=== PATIENT | female | born 1985 | race Caucasian/White ===

== ENCOUNTER 2016-11-19 21:34 | Inpatient (IN) | payer SELFPAY ==
[~2016-11-19] VITALS: Ht 157.5 cm; Wt 70.5 kg
--- NOTE | 2016-11-19 22:12 | PHYS DOC ---
Past Medical History Past Medical History: Asthma Past Surgical History: No Surgical History Alcohol Use: None Drug Use: None Adult General Chief Complaint Chief Complaint: Influenza HPI HPI Patient is a 31 year old female who presents emergency Department with a complaint of a one and a half week history of nonproductive cough, fevers, body aches, nasal congestion and slight dysuria. Patient states that she was signing [facility] last week. She states that she was prescribed an antibiotic to take. She denies having influenza test are chest x-ray didn't that time. Patient does have an established history of asthma. Patient denies any known ill contacts with similar symptoms. She denies hospitalization or foreign travel within the past 90 days. Review of Systems Review of Systems Constitutional: Denies fever or chills [] Eyes: Denies change in visual acuity, redness, or eye pain [] HENT: Denies nasal congestion or sore throat [] Respiratory: Denies cough or shortness of breath [] Cardiovascular: No additional information not addressed in HPI [] GI: Denies abdominal pain, nausea, vomiting, bloody stools or diarrhea [] : Denies dysuria or hematuria [] Musculoskeletal: Denies back pain or joint pain [] Integument: Denies rash or skin lesions [] Neurologic: Denies headache, focal weakness or sensory changes [] Endocrine: Denies polyuria or polydipsia [] Current Medications Current Medications Current Medications Medications (Trade) Dose Ordered Sig/Porfirio Start Time Stop Time Status Last Admin Dose Admin Acetaminophen (Tylenol) 500 mg 1X ONCE 11/19/16 22:30 11/19/16 22:31 DC 11/19/16 22:18 500 MG Acetaminophen/ Hydrocodone Bitart (Lortab 5/325) 1 tab 1X ONCE 11/19/16 22:30 11/19/16 22:31 DC 11/19/16 22:18 1 TAB Albuterol/ Ipratropium 3 ml 3 ml 1X ONCE 11/20/16 00:00 11/20/16 00:01 DC 11/20/16 00:02 3 ML Ciprofloxacin Lactate (Cipro 400mg Premix) 200 ml @ 200 mls/hr Q12HR 11/20/16 01:00 Piperacillin Sod/ Tazobactam Sod 3.375 gm/Sodium Chloride 50 ml @ 100 mls/hr 1X ONCE 11/20/16 00:00 11/20/16 00:29 Promethazine HCl 25 mg 25 mg 1X ONCE 11/19/16 23:15 11/19/16 23:16 DC 11/19/16 22:54 25 MG Sodium Chloride 1,000 ml @ 1,000 mls/hr Q1H 11/20/16 00:00 11/20/16 00:59 Vancomycin HCl (Vanco Per Pharmacy) 1 each PRN DAILY PRN 11/19/16 23:45 Vancomycin HCl/ Sodium Chloride (Iv Sodium Chloride 0.9% 500ml Bag) 500 ml @ 250 mls/hr 1X ONCE 11/20/16 00:30 11/20/16 02:29 Allergies Allergies Allergies Coded Allergies Type Severity Reaction Last Updated Verified No Known Drug Allergies 11/19/16 No Physical Exam Physical Exam Constitutional: Well developed, well nourished, no acute distress, non-toxic appearance. Patient is febrile. HENT: Normocephalic, atraumatic, bilateral external ears normal, oropharynx moist, no oral exudates, nose normal. There is no trismus or hot potato speech. Posterior oropharynx is moist and normal in appearance. Eyes: PERRLA, EOMI, conjunctiva normal, no discharge. [] Neck: Normal range of motion, no tenderness, supple, no stridor. There is no meningismus. There is bilateral anterior posterior cervical lymphadenopathy. Cardiovascular:Heart rate and 18 with regular rhythm, no murmur Lungs & Thorax: There is no respiratory distress respiratory fatigue. Lung sounds with rales in the LEFT lung base. Abdomen: Bowel sounds normal, soft, no tenderness, no masses, no pulsatile masses. Skin: Warm, dry, no erythema, no rash. [] Back: No tenderness, no CVA tenderness. [] Extremities: No tenderness, no cyanosis, no clubbing, ROM intact, no edema. [] Neurologic: Alert and oriented X 3, normal motor function, normal sensory function, no focal deficits noted. [] Psychologic: Affect normal, judgement normal, mood normal. [] Current Patient Data Vital Signs Vital Signs Date Time Temp Pulse Resp B/P Pulse Ox O2 Delivery O2 Flow Rate FiO2 11/20/16 00:03 95 Room Air 11/19/16 23:34 102.4 102.4 11/19/16 21:57 79 18 Lab Values Laboratory Tests Test 11/19/16 22:10 Urine Collection Type Unknown Urine Color Eve Urine Clarity Cloudy Urine pH 5.5 Urine Specific [place] 1.025 Urine Protein 100mg/dL (NEG-TRACE) Urine Glucose (UA) Negativemg/dL (NEG) Urine Ketones (Stick) 15mg/dL (NEG) Urine Blood Negative (NEG) Urine Nitrite Positive (NEG) Urine Bilirubin Moderate (NEG) Urine Urobilinogen Dipstick 4.0mg/dL (0.2 mg/dL) Urine Leukocyte Esterase Small (NEG) Urine RBC 0/HPF (0-2) Urine WBC 1-4/HPF (0-4) Urine Squamous Epithelial Cells Mod/LPF Urine Bacteria Many/HPF (0-FEW) Urine Mucus Mod/LPF Influenza Type A Antigen Negative (NEGATIVE) Influenza Type B Antigen Negative (NEGATIVE) EKG EKG [] Radiology/Procedures Radiology/Procedures PA and lateral chest x-ray was performed with adequate technique. Patient has 2 areas of infiltrate in her left lower lobe. Course & Med Decision Making Course & Med Decision Making Patient is sick, but not unstable. She is an otherwise healthy 31-year-old female that presents with persistent fever and cough after taking a 5 day course of an antibiotic that is assumed to be azithromycin. After reviewing patient's chest x-ray which indicates a left lower lobe pneumonia, I spoke with Dr. Gutierrez, hospitalist will accept the patient on her service for healthcare associated pneumonia. Patient was moved to the acute area of the emergency department for lab draw and IV fluids. I discussed this case with Dr. Marrero, emergency medicine physician who agrees with this plan. Dragon Disclaimer Dragon Disclaimer This electronic medical record was generated, in whole or in part, using a voice recognition dictation system. Departure Departure Impression: Primary Impression: Healthcare-associated pneumonia Disposition: ADMITTED INPATIENT Admitting Physician: Leopoldo Gutierrez Condition: STABLE SENAIT HERNANDEZ Nov 19, 2016 22:12
[2016-11-19 22:20] LABS: BILIRUBIN,URINE MODERATE (NEG); GLUCOSE,URINE NEGATIVE (NEG); NITRITE,URINE POSITIVE (NEG); PH,URINE 5.5; PROTEIN,URINE 100 mg/dL (NEG-TRACE)
[2016-11-19 22:25] LABS: BACTERIA,URINE MANY /HPF (0-FEW); RBC,URINE 0 /HPF (0-2); SQUAMOUS EPITHELIAL CELL,UR MOD /LPF
[2016-11-19] MEDS ORDERED: HYDROCODONE/APAP 5/325MG TABLET. PO ONE (22:30)
[2016-11-19] MEDS ORDERED: ACETAMINOPHEN 500 MG TABLET PO ONE (22:30)
[2016-11-19 22:44] LABS: OBC FLU VALID
[2016-11-19] MEDS ORDERED: PROMETHAZINE IM 25 MG/ML VIAL IM ONE (23:15)
[2016-11-20] VITALS (7 sets, daily range): BP systolic 93–105; BP diastolic 53–77
[2016-11-20] MEDS ORDERED: IPRATRPIUM/ALBUTEROL 0.5/2.5MG 3 ML NEBU. NEB ONE
[2016-11-20] MEDS ORDERED: IV NORMAL SALINE 1000ML BAG 1,000 ML IV SCH
[2016-11-20] MEDS ORDERED: PIPERACILLIN/TAZOBACTAM 3.375 GM in IV NORMAL SALINE 50ML 50 ML IV ONE ×2
[2016-11-20] MEDS: IV NORMAL SALINE 1000ML BAG 1,000 ML IV SCH ×3 (00:08→13:04)
[2016-11-20] MEDS ORDERED: ACETAMINOPHEN 325 MG TABLET. PO PRN ×2 (00:15→08:30)
[2016-11-20] MEDS ORDERED: VANCOMYCIN PER PHARMACY MC PRN ×2 (00:15→08:45)
[2016-11-20] MEDS ORDERED: ONDANSETRON PF 4 MG/2 ML VIAL. IV PRN ×2 (00:15→08:30)
[2016-11-20] MEDS ORDERED: PIP/TAZO PER PHARMACY MC PRN (00:15)
[2016-11-20 00:28] LABS: BASO % 0 % (0-3); EOS % 0 % (0-3); HEMOGLOBIN 12.8 g/dL (12.0-15.5); LYMPH # 0.9 x10^3/uL (1.0-4.8); LYMPH % 5 % (24-48); MEAN CORPUSCULAR HEMOGLOBIN 29 pg (25-35); MEAN CORPUSCULAR HGB CONC 34 g/dL (31-37); MEAN CORPUSCULAR VOLUME 86 fL (79-100); MONO % 5 % (0-9); NEUT % 89 % (31-73); PLATELET COUNT 240 x10^3/uL (140-400); RED BLOOD COUNT 4.43 x10^6/uL (3.50-5.40); RED CELL DISTRIBUTION WIDTH 13.2 % (11.5-14.5); WHITE BLOOD COUNT 18.5 x10^3/uL (4.0-11.0)
[2016-11-20] MEDS ORDERED: VANCOMYCIN 1.75 GM in IV NORMAL SALINE 500ML BAG 500 ML IV ONE ×2 (00:30→09:00)
[2016-11-20 00:37] LABS: CALCIUM 9.3 mg/dL (8.5-10.1); CREATININE 0.8 mg/dL (0.6-1.0); GFR 83.1; POTASSIUM 3.3 mmol/L (3.5-5.1)
[2016-11-20 00:42] LABS: ALBUMIN 3.6 g/dL (3.4-5.0); TOTAL BILIRUBIN 2.3 mg/dL (0.2-1.0); TOTAL PROTEIN 7.1 g/dL (6.4-8.2)
[2016-11-20] MEDS: CIPROFLOXACIN 400MG PREMIX 200 ML IV SCH ×2 (00:57→08:58)
[2016-11-20 01:24] LABS: PLT ESTIMATE ADEQUATE (ADEQUATE); TOXIC GRANULATION SLIGHT; TOXIC VACUOLATION SLIGHT
[2016-11-20] MEDS ORDERED: INFLUENZA VAX SCREEN BY RX. MC ONE (01:30)
[2016-11-20] MEDS ORDERED: PNEUMOCOCCAL VAX SCREEN BY RX. MC ONE (01:30)
[2016-11-20] MEDS: VANCOMYCIN PER PHARMACY MC PRN (01:57)
[2016-11-20] MEDS ORDERED: PIPERACILLIN/TAZOBACTAM 3.375 GM in IV NORMAL SALINE 50ML 50 ML IV SCH (06:00)
--- NOTE | 2016-11-20 07:14 | RAD ---
Chest, 2 views, 11/19/2016: History: Fever and cough The heart size and pulmonary vascularity are normal. There are moderate patchy infiltrates in the left lung base involving the left lower lobe and lingula. There is a lesser degree of infiltrate in the right base medially. The findings suggest pneumonia. There is no evidence of pleural fluid. IMPRESSION: Moderate basilar infiltrates, predominantly on the left, compatible with pneumonia.
[2016-11-20] MEDS: IPRATRPIUM/ALBUTEROL 0.5/2.5MG 3 ML NEBU. NEB SCH ×4 (07:28→18:13)
[2016-11-20] MEDS ORDERED: HYDROCODONE/APAP 5/325MG TABLET. PO PRN (08:30)
[2016-11-20] MEDS ORDERED: hydrALAZINE 20 MG/ML VIAL. IVP PRN (08:30)
[2016-11-20] MEDS ORDERED: ALBUTEROL SULFATE 2.5 MG/3 ML NEBU. NEB PRN (08:30)
[2016-11-20] MEDS ORDERED: FLU VACC QUAD 2016-17 (36MOS+)/PF 0.5 ML SYRINGE. VAX IM ONE (09:00)
[2016-11-20] MEDS ORDERED: CIPROFLOXACIN 400MG PREMIX 200 ML IV SCH (09:00)
[2016-11-20] MEDS ORDERED: PNEUMOC CONJ VACC 23-VALENT 0.5 ML VIAL. VAX IM ONE (09:00)
--- NOTE | 2016-11-20 09:55 | HP ---
ADMIT DATE: 11/20/2016 CHIEF COMPLAINT: Cough and pneumonia. HISTORY OF PRESENT ILLNESS: A 31-year-old female patient with no significant medical problems, presented to the ER with complaints of nearly 1 week of nonproductive cough and fever and body aches. She was seen by physicians at [facility] last week and she was treated with oral antibiotic, Zithromax. The patient completed antibiotic for one week; however, her symptoms did not improve, which made her to come to the ER. She was complaining of some nausea, headache, fever and weakness; however, her influenza rapid test is negative on arrival. The patient was admitted to the hospital for failed outpatient antibiotics and treatment of pneumonia. She denies any sick contacts, travel history. She was a smoker. She is not a smoker at this time. PAST MEDICAL HISTORY: None. FAMILY HISTORY: Mother has asthma. PERSONAL HISTORY: Former smoker, quit smoking in August, no alcohol, no drug abuse. ALLERGIES: NKDA. REVIEW OF SYSTEMS: CONSTITUTIONAL: No fever or chills. EYES: No recent vision changes. SKIN: No rash or itching. CARDIOVASCULAR: No chest pain, syncope, palpitations or edema. RESPIRATORY: Cough and mild short of breath. GASTROINTESTINAL: No nausea, vomiting, diarrhea or abdominal pain. NEUROLOGICAL: No headache, paralysis. ENDOCRINOLOGIC: No cold or heat intolerance. GENITOURINARY: No burning with urination, no urgency. MUSCULOSKELETAL: No back pain or joint pain. LYMPHATICS: No enlarged nodes. PSYCHIATRIC: No anxiety or depression. CURRENT MEDICATIONS: Reviewed and reconciled. Please see MRAD. PHYSICAL EXAM: GENERAL: No apparent distress. HEENT: Head normocephalic, atraumatic. NECK: Supple. LUNGS: Mild respiratory distress with rales present bilaterally. HEART: Regular rate and rhythm; S1, S2 present; pulses intact. ABDOMEN: Soft and positive bowel sounds. EXTREMITIES: No cyanosis or edema. NEUROLOGIC: Normal speech and normal tone; alert and oriented. PSYCHIATRIC: Normal affect, normal mood. SKIN: No ulceration. VITAL SIGNS: At the time of arrival, temperature ____, pulse 79, respirations 18, pulse ox 95% on room air. LABORATORY DATA: Sodium 138, potassium 3.3, chloride is 97, carbon dioxide 27, anion gap 14, BUN is 12, creatinine 0.8. Total bilirubin 2.3. AST 63 and ALT 64, alkaline phosphatase 197. Hematology: WBC 18.5, hemoglobin is 12.8, MCV is 86 and platelets 240. Segmented neutrophil 83% with toxic granulation present. Urine, nitrites positive and leukocyte esterase is small. Serology, influenza A and B negative. IMAGING STUDIES: Chest x-ray showed moderate basilar infiltrates predominantly on the left compatible with pneumonia. ASSESSMENT: 1. Community-acquired pneumonia, failed outpatient antibiotics. 2. Elevated bilirubin with mild AST and ALT. 3. Generalized weakness. 4. Leukocytosis due to pneumonia. PLAN: 1. Due to her failed antibiotics, I will start her on Zosyn and vancomycin for now and de-escalate antibiotics as needed. 2. Tylenol for fever. 3. Monitor her CBC and CMP in a.m. 4. Consult Pulmonology for further recommendations. 5. P.r.n. bronchodilators. 6. I will order blood cultures if any temperature spikes more than 100. 7. Currently, the patient is on room air and will continue mild IV hydration. 8. Supportive care. 9. Overall prognosis guarded. SHAWN GODFREY MD DR: ELYSSA/rosa JOB#: [id number] / [id number]
[2016-11-20] MEDS: PIPERACILLIN/TAZOBACTAM 3.375 GM in IV NORMAL SALINE 50ML 50 ML IV SCH ×4 (10:45→23:41)
[2016-11-20] MEDS: VANCOMYCIN 1 GM in IV NORMAL SALINE 250ML 250 ML IV SCH (12:28)
[2016-11-20] MEDS ORDERED: POTASSIUM CHLORIDE 20 MEQ TABLET.ER. PO ONE (12:45)
[2016-11-21] VITALS (7 sets, daily range): BP systolic 93–198; BP diastolic 54–92
[2016-11-21] MEDS: VANCOMYCIN 1 GM in IV NORMAL SALINE 250ML 250 ML IV SCH ×2 (00:25→12:00)
[2016-11-21] MEDS: IV NORMAL SALINE 1000ML BAG 1,000 ML IV SCH ×2 (04:16→09:10)
[2016-11-21 05:10] LABS: BASO % 1 % (0-3); EOS % 2 % (0-3); HEMATOCRIT 29.8 % (36.0-47.0); HEMOGLOBIN 10.2 g/dL (12.0-15.5); LYMPH # 0.9 x10^3/uL (1.0-4.8); LYMPH % 18 % (24-48); MEAN CORPUSCULAR HEMOGLOBIN 30 pg (25-35); MEAN CORPUSCULAR HGB CONC 34 g/dL (31-37); MEAN CORPUSCULAR VOLUME 86 fL (79-100); MONO % 6 % (0-9); NEUT % 74 % (31-73); PLATELET COUNT 221 x10^3/uL (140-400); RED BLOOD COUNT 3.45 x10^6/uL (3.50-5.40); RED CELL DISTRIBUTION WIDTH 13.7 % (11.5-14.5)
[2016-11-21] MEDS: PIPERACILLIN/TAZOBACTAM 3.375 GM in IV NORMAL SALINE 50ML 50 ML IV SCH (05:53)
[2016-11-21 06:06] LABS: CALCIUM 8.5 mg/dL (8.5-10.1); CREATININE 0.5 mg/dL (0.6-1.0); POTASSIUM 3.4 mmol/L (3.5-5.1)
[2016-11-21] MEDS: IPRATRPIUM/ALBUTEROL 0.5/2.5MG 3 ML NEBU. NEB SCH (07:30)
--- NOTE | 2016-11-21 08:49 | PDOC ---
PROGRESS NOTES Chief Complaint Chief Complaint cc: sob A/P 1. Community-acquired pneumonia, failed outpatient antibiotics. 2. Elevated bilirubin with mild AST and ALT. 3. GPC bacteremia Plan continue current abx, Zosyn and vancomycin follow blood cx monitor bilirubin clinically improving ID consult supportive care. 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 Vitals Vitals Vital Signs Date Time Temp Pulse Resp B/P Pulse Ox O2 Delivery O2 Flow Rate FiO2 11/21/16 06:42 98.5 88 16 102/58 97 Room Air 98.5 11/20/16 23:36 97.0 Physical Exam General: Alert, Oriented X3 Heart: Normal S1, Normal S2 Lungs: Clear Abdomen: Normal bowel sounds Extremities: No clubbing Labs LABS Laboratory Tests Test 11/21/16 03:32 White Blood Count 5.0x10^3/uL (4.0-11.0) Red Blood Count 3.45x10^6/uL (3.50-5.40) Hemoglobin 10.2g/dL (12.0-15.5) Hematocrit 29.8% (36.0-47.0) Mean Corpuscular Volume 86fL (79-100) Mean Corpuscular Hemoglobin 30pg (25-35) Mean Corpuscular Hemoglobin Concent 34g/dL (31-37) Red Cell Distribution Width 13.7% (11.5-14.5) Platelet Count 221x10^3/uL (140-400) Neutrophils (%) (Auto) 74% (31-73) Lymphocytes (%) (Auto) 18% (24-48) Monocytes (%) (Auto) 6% (0-9) Eosinophils (%) (Auto) 2% (0-3) Basophils (%) (Auto) 1% (0-3) Neutrophils # (Auto) 3.7x10^3uL (1.8-7.7) Lymphocytes # (Auto) 0.9x10^3/uL (1.0-4.8) Monocytes # (Auto) 0.3x10^3/uL (0.0-1.1) Eosinophils # (Auto) 0.1x10^3/uL (0.0-0.7) Basophils # (Auto) 0.0x10^3/uL (0.0-0.2) Sodium Level 144mmol/L (136-145) Potassium Level 3.4mmol/L (3.5-5.1) Chloride Level 107mmol/L (98-107) Carbon Dioxide Level 24mmol/L (21-32) Anion Gap 13 (6-14) Blood Urea Nitrogen 8mg/dL (7-20) Creatinine 0.5mg/dL (0.6-1.0) Estimated GFR (Cockcroft-Gault) 143.0 Glucose Level 101mg/dL (70-99) Calcium Level 8.5mg/dL (8.5-10.1) Assessment and Plan Assessmemt and Plan Problems Medical Problems: (1) Healthcare-associated pneumonia Status: Acute Problems: Comment Review of Relevant I have reviewed the following items [place]in (where applicable) has been applied. Labs Laboratory Tests Test 11/19/16 22:10 11/19/16 22:16 11/20/16 00:15 11/21/16 03:32 Urine Collection Type Unknown Urine Color Eve Urine Clarity Cloudy Urine pH 5.5 Urine Specific [place] 1.025 Urine Protein 100mg/dL (NEG-TRACE) Urine Glucose (UA) Negativemg/dL (NEG) Urine Ketones (Stick) 15mg/dL (NEG) Urine Blood Negative (NEG) Urine Nitrite Positive (NEG) Urine Bilirubin Moderate (NEG) Urine Urobilinogen Dipstick 4.0mg/dL (0.2 mg/dL) Urine Leukocyte Esterase Small (NEG) Urine RBC 0/HPF (0-2) Urine WBC 1-4/HPF (0-4) Urine Squamous Epithelial Cells Mod/LPF Urine Bacteria Many/HPF (0-FEW) Urine Mucus Mod/LPF Influenza Type A Antigen Negative (NEGATIVE) Influenza Type B Antigen Negative (NEGATIVE) Bedside Urine HCG, Qualitative Hcg negative (Negative) White Blood Count 18.5x10^3/uL (4.0-11.0) 5.0x10^3/uL (4.0-11.0) Red Blood Count 4.43x10^6/uL (3.50-5.40) 3.45x10^6/uL (3.50-5.40) Hemoglobin 12.8g/dL (12.0-15.5) 10.2g/dL (12.0-15.5) Hematocrit 38.0% (36.0-47.0) 29.8% (36.0-47.0) Mean Corpuscular Volume 86fL (79-100) 86fL (79-100) Mean Corpuscular Hemoglobin 29pg (25-35) 30pg (25-35) Mean Corpuscular Hemoglobin Concent 34g/dL (31-37) 34g/dL (31-37) Red Cell Distribution Width 13.2% (11.5-14.5) 13.7% (11.5-14.5) Platelet Count 240x10^3/uL (140-400) 221x10^3/uL (140-400) Neutrophils (%) (Auto) 89% (31-73) 74% (31-73) Lymphocytes (%) (Auto) 5% (24-48) 18% (24-48) Monocytes (%) (Auto) 5% (0-9) 6% (0-9) Eosinophils (%) (Auto) 0% (0-3) 2% (0-3) Basophils (%) (Auto) 0% (0-3) 1% (0-3) Neutrophils # (Auto) 16.5x10^3uL (1.8-7.7) 3.7x10^3uL (1.8-7.7) Lymphocytes # (Auto) 0.9x10^3/uL (1.0-4.8) 0.9x10^3/uL (1.0-4.8) Monocytes # (Auto) 1.0x10^3/uL (0.0-1.1) 0.3x10^3/uL (0.0-1.1) Eosinophils # (Auto) 0.0x10^3/uL (0.0-0.7) 0.1x10^3/uL (0.0-0.7) Basophils # (Auto) 0.0x10^3/uL (0.0-0.2) 0.0x10^3/uL (0.0-0.2) Segmented Neutrophils % 83% (35-66) Band Neutrophils % 7% (0-9) Lymphocytes % 4% (24-48) Monocytes % 6% (0-10) Toxic Granulation Slight Toxic Vacuolation Slight Platelet Estimate Adequate (ADEQUATE) Sodium Level 138mmol/L (136-145) 144mmol/L (136-145) Potassium Level 3.3mmol/L (3.5-5.1) 3.4mmol/L (3.5-5.1) Chloride Level 97mmol/L (98-107) 107mmol/L (98-107) Carbon Dioxide Level 27mmol/L (21-32) 24mmol/L (21-32) Anion Gap 14 (6-14) 13 (6-14) Blood Urea Nitrogen 12mg/dL (7-20) 8mg/dL (7-20) Creatinine 0.8mg/dL (0.6-1.0) 0.5mg/dL (0.6-1.0) Estimated GFR (Cockcroft-Gault) 83.1 143.0 BUN/Creatinine Ratio 15 (6-20) Glucose Level 140mg/dL (70-99) 101mg/dL (70-99) Lactic Acid Level 1.5mmol/L (0.4-2.0) Calcium Level 9.3mg/dL (8.5-10.1) 8.5mg/dL (8.5-10.1) Total Bilirubin 2.3mg/dL (0.2-1.0) Aspartate Amino Transf (AST/SGOT) 63U/L (15-37) Alanine Aminotransferase (ALT/SGPT) 64U/L (14-59) Alkaline Phosphatase 197U/L (46-116) Total Protein 7.1g/dL (6.4-8.2) Albumin 3.6g/dL (3.4-5.0) Albumin/Globulin Ratio 1.0 (1.0-1.7) Laboratory Tests Test 11/21/16 03:32 White Blood Count 5.0x10^3/uL (4.0-11.0) Red Blood Count 3.45x10^6/uL (3.50-5.40) Hemoglobin 10.2g/dL (12.0-15.5) Hematocrit 29.8% (36.0-47.0) Mean Corpuscular Volume 86fL (79-100) Mean Corpuscular Hemoglobin 30pg (25-35) Mean Corpuscular Hemoglobin Concent 34g/dL (31-37) Red Cell Distribution Width 13.7% (11.5-14.5) Platelet Count 221x10^3/uL (140-400) Neutrophils (%) (Auto) 74% (31-73) Lymphocytes (%) (Auto) 18% (24-48) Monocytes (%) (Auto) 6% (0-9) Eosinophils (%) (Auto) 2% (0-3) Basophils (%) (Auto) 1% (0-3) Neutrophils # (Auto) 3.7x10^3uL (1.8-7.7) Lymphocytes # (Auto) 0.9x10^3/uL (1.0-4.8) Monocytes # (Auto) 0.3x10^3/uL (0.0-1.1) Eosinophils # (Auto) 0.1x10^3/uL (0.0-0.7) Basophils # (Auto) 0.0x10^3/uL (0.0-0.2) Sodium Level 144mmol/L (136-145) Potassium Level 3.4mmol/L (3.5-5.1) Chloride Level 107mmol/L (98-107) Carbon Dioxide Level 24mmol/L (21-32) Anion Gap 13 (6-14) Blood Urea Nitrogen 8mg/dL (7-20) Creatinine 0.5mg/dL (0.6-1.0) Estimated GFR (Cockcroft-Gault) 143.0 Glucose Level 101mg/dL (70-99) Calcium Level 8.5mg/dL (8.5-10.1) Microbiology 11/20/16 Blood Culture - Final, Complete Medications Current Medications Acetaminophen (Tylenol) 500 mg 1X ONCE PO Last administered on 11/19/16 22:18 ; Start 11/19/16 at 22:30; Stop 11/19/16 at 22:31; Status DC Acetaminophen/ Hydrocodone Bitart (Lortab 5/325) 1 tab 1X ONCE PO Last administered on 11/19/16 22:18; Start 11/19/16 at 22:30; Stop 11/19/16 at 22:31 ; Status DC Promethazine HCl 25 mg 25 mg 1X ONCE IM Last administered on 11/19/16 22:54; Start 11/19/16 at 23:15; Stop 11/19/16 at 23:16; Status DC Sodium Chloride 1,000 ml @ 1,000 mls/hr Q1H IV Last administered on 11/20/16 00:07; Start 11/20/16 at 00:00; Stop 11/20/16 at 00:59; Status DC Piperacillin Sod/ Tazobactam Sod 3.375 gm/Sodium Chloride 50 ml @ 100 mls/hr 1X ONCE IV Last administered on 11/20/16 00:07; Start 11/20/16 at 00:00; Stop 11/20/16 at 00:29; Status DC Ciprofloxacin Lactate (Cipro 400mg Premix) 200 ml @ 200 mls/hr Q12HR IV Last administered on 11/20/16 08:58; Start 11/20/16 at 01:00; Stop 11/20/16 at 16:03 ; Status DC Vancomycin HCl (Vanco Per Pharmacy) 1 each PRN DAILY PRN MC SEE COMMENTS Last administered on 11/20/16 01:57; Start 11/19/16 at 23:45 Albuterol/ Ipratropium 3 ml 3 ml 1X ONCE NEB Last administered on 11/20/16 00 :02; Start 11/20/16 at 00:00; Stop 11/20/16 at 00:01; Status DC Vancomycin HCl/ Sodium Chloride (Iv Sodium Chloride 0.9% 500ml Bag) 500 ml @ 250 mls/hr 1X ONCE IV Last administered on 11/20/16 00:58; Start 11/20/16 at 00:30; Stop 11/20/16 at 02:29; Status DC Ondansetron HCl 4 mg 4 mg PRN Q8HRS PRN IV NAUSEA/VOMITING; Start 11/20/16 at 00:15; Stop 11/20/16 at 08:20; Status DC Sodium Chloride (Iv Sodium Chloride 0.9% 1000ml Bag) 1,000 ml @ 150 mls/hr Q6H40M IV ; Start 11/20/16 at 00:08; Stop 11/20/16 at 12:44; Status DC Acetaminophen (Tylenol) 650 mg PRN Q4HRS PRN PO FEVER; Start 11/20/16 at 00:15 ; Stop 11/20/16 at 08:20; Status DC Albuterol/ Ipratropium (Duoneb) 3 ml RTQID NEB Last administered on 11/21/16 07:30; Start 11/20/16 at 08:00; Stop 11/21/16 at 07:59; Status DC Piperacillin Sod/ Tazobactam Sod (Zosyn Per Pharmacy) 1 each PRN DAILY PRN MC SEE COMMENTS; Start 11/20/16 at 00:15 Vancomycin HCl 1 each 1 each PRN DAILY PRN MC SEE COMMENTS; Start 11/20/16 at 00:15; Status UNV Ciprofloxacin Lactate (Cipro 400mg Premix) 200 ml @ 200 mls/hr Q12HR IV ; Start 11/20/16 at 09:00; Status UNV Info (Do NOT chart on this placeholder) 1 each ONCE ONCE MC ; Start 11/20/16 at 01:30; Stop 11/20/16 at 01:31; Status UNV Pneumococcal Polyvalent Vaccine (Do NOT chart on this placeholder) 1 each ONCE ONCE MC ; Start 11/20/16 at 01:30; Stop 11/20/16 at 01:31; Status UNV Influenza Virus Vaccine Quadrival (Fluarix Quad 0638-1026 Syringe) 0.5 ml ONCE ONCE VAX IM ; Start 11/20/16 at 09:00; Stop 11/20/16 at 09:01; Status DC Pneumococcal Polyvalent Vaccine 0.5 ml 0.5 ml ONCE ONCE VAX IM ; Start 11/20/16 at 09:00; Stop 11/20/16 at 09:01; Status DC Piperacillin Sod/ Tazobactam Sod 3.375 gm/Sodium Chloride 50 ml @ 100 mls/hr Q6HRS IV Last administered on 11/20/16 05:39; Start 11/20/16 at 06:00; Stop at 09:17; Status DC Vancomycin HCl/ Sodium Chloride (Iv Sodium Chloride 0.9% 250ml) 250 ml @ 250 mls/hr Q12H IV Last administered on 11/21/16 00:25; Start 11/20/16 at 12:00 Vancomycin HCl 1 each 1X ONCE MC ; Start 11/21/16 at 11:30; Stop 11/21/16 at 11 :31 Acetaminophen (Tylenol) 325 mg PRN Q6HRS PRN PO MILD PAIN / TEMP; Start at 08:30 Acetaminophen/ Hydrocodone Bitart (Lortab 5/325) 1 tab PRN Q6HRS PRN PO MODERATE TO SEVERE PAIN; Start 11/20/16 at 08:30 Hydralazine HCl (Apresoline) 10 mg PRN Q4HRS PRN IVP ELEVATED BP, SEE COMMENTS ; Start 11/20/16 at 08:30 Ondansetron HCl (Zofran) 4 mg PRN Q8HRS PRN IV NAUSEA/VOMITING Last administered on 11/21/16 01:46; Start 11/20/16 at 08:30 Albuterol Sulfate 2.5 mg 2.5 mg PRN Q4HRS PRN NEB SHORTNESS OF BREATH; Start at 08:30 Piperacillin Sod/ Tazobactam Sod/ Sodium Chloride (Zosyn/Iv Sodium Chloride 0.9 % 50ml) 50 ml @ 100 mls/hr Q6HRS IV Last administered on 11/21/16 05:53; Start 11/20/16 at 09:00 Vancomycin HCl 1 each 1 each PRN DAILY PRN MC SEE COMMENTS; Start 11/20/16 at 08:45; Status UNV Sodium Chloride 1,000 ml @ 75 mls/hr [id number] IV Last administered on 04:16; Start 11/20/16 at 09:00 Vancomycin HCl/ Sodium Chloride (Iv Sodium Chloride 0.9% 500ml Bag) 500 ml @ 250 mls/hr 1X ONCE IV ; Start 11/20/16 at 09:00; Stop 11/20/16 at 10:59; Status Cancel Potassium Chloride (Klor-Con) 20 meq 1X ONCE PO Last administered on 13:02; Start 11/20/16 at 12:45; Stop 11/20/16 at 12:46; Status DC Vitals/I & O Vital Sign - Last 24 Hours 11/20/16 11/20/16 11/20/16 11/20/16 10:42 11:58 14:39 15:12 Temp 98.0 98.3 98.0 98.3 Pulse 71 98 Resp 18 18 B/P 102/59 98/55 Pulse Ox 97 97 97 O2 Delivery Room Air Room Air Room Air Room Air 2/2011/20/16 11/20/16 11/20/16 18:13 19:10 19:10 23:36 Temp 98.0 98.5 98.0 98.5 Pulse 109 103 Resp 18 18 B/P 105/63 97/64 Pulse Ox 97 O2 Delivery Room Air Room Air Room Air Room Air O2 Flow Rate 97.0 11/21/16 11/21/16 03:00 06:42 Temp 99.0 98.5 99.0 98.5 Pulse 102 88 Resp 16 16 B/P 99/62 102/58 Pulse Ox 92 97 O2 Delivery Room Air Room Air Intake and Output 11/20/16 11/20/16 11/21/16 15:00 23:00 07:00 Intake Total 210 ml 1480 ml 880 ml Balance 210 ml 1480 ml 880 ml SHAWN GODFREY MD Nov 21, 2016 08:49
--- NOTE | 2016-11-21 10:54 | PDOC ---
Infectious Disease Note ROS ROS GEN: Denies fevers, chills, sweats HEENT: Denies blurred vision, sore throat CV: Denies chest pain RESP: Denies shortness of air, cough GI: Denies n/v/d NEURO: Denies confusion, dizziness MSK: Denies weakness, joint pain/swelling Vital Sign Vital Signs Vital Signs Date Time Temp Pulse Resp B/P Pulse Ox O2 Delivery O2 Flow Rate FiO2 11/21/16 07:35 92 Room Air 11/21/16 06:42 98.5 88 16 102/58 98.5 11/20/16 23:36 97.0 Physical Exam PHYSICAL EXAM GENERAL: NAD, Alert HEENT: PERRL, OC/OP NECK: Supple, no JVD, no LN LUNGS: Clear HEART: S1S2, no gallop, no murmur ABD: Soft, NT, no organomegaly, no rebound EXT: No edema, no cyanosis [employer]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, 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, no focal neurologic deficit SKIN: No rash IV: ok Labs Lab Laboratory Tests Test 11/21/16 03:32 White Blood Count 5.0x10^3/uL (4.0-11.0) Red Blood Count 3.45x10^6/uL (3.50-5.40) Hemoglobin 10.2g/dL (12.0-15.5) Hematocrit 29.8% (36.0-47.0) Mean Corpuscular Volume 86fL (79-100) Mean Corpuscular Hemoglobin 30pg (25-35) Mean Corpuscular Hemoglobin Concent 34g/dL (31-37) Red Cell Distribution Width 13.7% (11.5-14.5) Platelet Count 221x10^3/uL (140-400) Neutrophils (%) (Auto) 74% (31-73) Lymphocytes (%) (Auto) 18% (24-48) Monocytes (%) (Auto) 6% (0-9) Eosinophils (%) (Auto) 2% (0-3) Basophils (%) (Auto) 1% (0-3) Neutrophils # (Auto) 3.7x10^3uL (1.8-7.7) Lymphocytes # (Auto) 0.9x10^3/uL (1.0-4.8) Monocytes # (Auto) 0.3x10^3/uL (0.0-1.1) Eosinophils # (Auto) 0.1x10^3/uL (0.0-0.7) Basophils # (Auto) 0.0x10^3/uL (0.0-0.2) Sodium Level 144mmol/L (136-145) Potassium Level 3.4mmol/L (3.5-5.1) Chloride Level 107mmol/L (98-107) Carbon Dioxide Level 24mmol/L (21-32) Anion Gap 13 (6-14) Blood Urea Nitrogen 8mg/dL (7-20) Creatinine 0.5mg/dL (0.6-1.0) Estimated GFR (Cockcroft-Gault) 143.0 Glucose Level 101mg/dL (70-99) Calcium Level 8.5mg/dL (8.5-10.1) Objective Assessment strep sepsis but Enterococcus also possible 11/20 UTI Fever Leukocytosis ? psorasis Plan Plan of Care Cont Vanc Change to [place] F/u cults and labs D/w [facility] micro - no labs on 11/14 # [id number] YECENIA CORNEJO MD Nov 21, 2016 10:54
[2016-11-21] MEDS: CEFTRIAXONE SODIUM 2 GM in IV NORMAL SALINE 100ML 100 ML IV SCH (12:39)
[2016-11-21] MEDS: VANCOMYCIN PER PHARMACY MC PRN (13:15)
[2016-11-21] MEDS: VANCOMYCIN 1.25 GM in IV NORMAL SALINE 250ML 250 ML IV SCH (14:11)
[2016-11-22] MEDS: IV NORMAL SALINE 1000ML BAG 1,000 ML IV SCH (01:46)
[2016-11-22] MEDS: VANCOMYCIN 1.25 GM in IV NORMAL SALINE 250ML 250 ML IV SCH ×2 (01:46→09:39)
[2016-11-22] MEDS: GUAIFENESIN 200 MG/10 ML LIQUID. PO PRN (02:41)
[2016-11-22 03:00] VITALS: BP 102/65
[2016-11-22 07:00] VITALS: BP 107/72
[2016-11-22 07:15] LABS: BASO % 1 % (0-3); EOS % 2 % (0-3); HEMATOCRIT 31.2 % (36.0-47.0); HEMOGLOBIN 10.3 g/dL (12.0-15.5); LYMPH # 0.8 x10^3/uL (1.0-4.8); LYMPH % 20 % (24-48); MEAN CORPUSCULAR HEMOGLOBIN 29 pg (25-35); MEAN CORPUSCULAR HGB CONC 33 g/dL (31-37); MEAN CORPUSCULAR VOLUME 87 fL (79-100); MONO % 6 % (0-9); NEUT % 71 % (31-73); PLATELET COUNT 228 x10^3/uL (140-400); RED BLOOD COUNT 3.57 x10^6/uL (3.50-5.40); RED CELL DISTRIBUTION WIDTH 13.4 % (11.5-14.5)
[2016-11-22 07:46] LABS: ALBUMIN 2.9 g/dL (3.4-5.0); ALBUMIN/GLOBULIN RATIO 1.3 (1.0-1.7); CALCIUM 8.8 mg/dL (8.5-10.1); CREATININE 0.5 mg/dL (0.6-1.0); TOTAL BILIRUBIN 0.5 mg/dL (0.2-1.0); TOTAL PROTEIN 5.2 g/dL (6.4-8.2)
[2016-11-22] MEDS: CEFTRIAXONE SODIUM 2 GM in IV NORMAL SALINE 100ML 100 ML IV SCH (10:57)
[2016-11-22 11:38] VITALS: BP 107/71
--- NOTE | 2016-11-22 11:49 | PDOC ---
Infectious Disease Note Subjective Subjective Better. no dysuria Occ cough but only at night ROS ROS GEN: Denies fevers, chills, sweats HEENT: Denies blurred vision, sore throat CV: Denies chest pain RESP: Denies shortness of air, cough GI: Denies n/v/d NEURO: Denies confusion, dizziness MSK: Denies weakness, joint pain/swelling Vital Sign Vital Signs Vital Signs Date Time Temp Pulse Resp B/P Pulse Ox O2 Delivery O2 Flow Rate FiO2 11/22/16 11:38 97.5 73 16 107/71 94 Room Air 97.5 11/21/16 17:42 3.0 Physical Exam PHYSICAL EXAM GENERAL: NAD, Alert HEENT: PERRL, OC/OP -clear NECK: Supple, no JVD, no LN LUNGS: Clear HEART: S1S2, no gallop, no murmur ABD: Soft, NT, no organomegaly, no rebound EXT: No edema, no cyanosis 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, 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, no focal neurologic deficit SKIN: No rash IV: ok Labs Lab Laboratory Tests Test 11/22/16 06:50 White Blood Count 4.0x10^3/uL (4.0-11.0) Red Blood Count 3.57x10^6/uL (3.50-5.40) Hemoglobin 10.3g/dL (12.0-15.5) Hematocrit 31.2% (36.0-47.0) Mean Corpuscular Volume 87fL (79-100) Mean Corpuscular Hemoglobin 29pg (25-35) Mean Corpuscular Hemoglobin Concent 33g/dL (31-37) Red Cell Distribution Width 13.4% (11.5-14.5) Platelet Count 228x10^3/uL (140-400) Neutrophils (%) (Auto) 71% (31-73) Lymphocytes (%) (Auto) 20% (24-48) Monocytes (%) (Auto) 6% (0-9) Eosinophils (%) (Auto) 2% (0-3) Basophils (%) (Auto) 1% (0-3) Neutrophils # (Auto) 2.9x10^3uL (1.8-7.7) Lymphocytes # (Auto) 0.8x10^3/uL (1.0-4.8) Monocytes # (Auto) 0.3x10^3/uL (0.0-1.1) Eosinophils # (Auto) 0.1x10^3/uL (0.0-0.7) Basophils # (Auto) 0.0x10^3/uL (0.0-0.2) Sodium Level 144mmol/L (136-145) Potassium Level 4.0mmol/L (3.5-5.1) Chloride Level 107mmol/L (98-107) Carbon Dioxide Level 25mmol/L (21-32) Anion Gap 12 (6-14) Blood Urea Nitrogen 6mg/dL (7-20) Creatinine 0.5mg/dL (0.6-1.0) Estimated GFR (Cockcroft-Gault) 143.0 BUN/Creatinine Ratio 12 (6-20) Glucose Level 104mg/dL (70-99) Calcium Level 8.8mg/dL (8.5-10.1) Total Bilirubin 0.5mg/dL (0.2-1.0) Aspartate Amino Transf (AST/SGOT) 44U/L (15-37) Alanine Aminotransferase (ALT/SGPT) 40U/L (14-59) Alkaline Phosphatase 147U/L (46-116) Total Protein 5.2g/dL (6.4-8.2) Albumin 2.9g/dL (3.4-5.0) Albumin/Globulin Ratio 1.3 (1.0-1.7) Objective Assessment Strep Pneumo sepsis - POA 11/20 UTI Fever Leukocytosis ? psorasis Plan Plan of Care Discont Vanc D/c IVF Cont Rocephin. Change to po 11/23 for d/c F/u cults and labs D/w YECENIA CORNEJO MD Nov 22, 2016 11:49
--- NOTE | 2016-11-22 11:50 | CONS ---
DATE OF CONSULTATION: 11/20/2016 ROOM: 205 REQUESTING PHYSICIAN: Bart Henson MD. REASON FOR CONSULTATION: Bacteremia. HISTORY OF PRESENT ILLNESS: The patient is a pleasant, 31-year-old, female who has been having issues with cough and fevers over the past several weeks. According to her , she went to [facility] last week and was given azithromycin. I did call over to [facility]. There were no labs obtained on her, there are no micro results and she did receive azithromycin and Tessalon Perles. He states that she initially felt better. However, again, started to become weak and had fevers, body aches and congestion and was brought to [facility]. On the , she had a white count of 18.5, was placed on vancomycin and Zosyn. Urinalysis was suggestive of urinary tract infection. Influenza screen was negative. Chest x-ray shows some moderate basilar infiltrates. Blood culture this morning turned positive for a gram-positive cocci in pairs and chains and hence I have been consulted. Currently, the patient is sitting in a chair, states she is feeling somewhat better, denies any dysuria symptoms, has little bit of a cough. PAST MEDICAL HISTORY: Positive for asthma as well as upper respiratory infections. REVIEW OF SYSTEMS: Otherwise negative except as mentioned above. ALLERGIES: No known drug allergies. SOCIAL HISTORY: She is . Her is currently with her. No tobacco. CURRENT MEDICATIONS: Vancomycin and Zosyn. She received ciprofloxacin. She is on Ventolin. Other medications are available and have been reviewed in chart. PHYSICAL EXAMINATION: VITAL SIGNS: Temperature is 103.1 at presentation, currently at 98.2, pulse 99, respirations 18, blood pressure 110/54, satting 96% on room air. CONSTITUTIONAL: Upon entering, she was standing. She sat down without any complications. She looks comfortable. HEENT: Pupils are equal and reactive. She has normal conjunctivae. No signs of any conjunctival hemorrhages. Oral cavity, pharynx is clear. She has no petechiae. She has good dentition. NECK: Supple, full range of motion. LUNGS: Clear to auscultation. HEART: S1, S2, without murmur. ABDOMEN: Soft, nontender, nondistended, with positive bowel sounds, no guarding or rebound. EXTREMITIES: No clubbing, cyanosis or gross edema. SKIN: Looks like she may have a little patch of psoriasis on her neck. Skin is otherwise without signs of rash. Warm to touch. NEUROLOGIC: She is nonfocal, moves all extremities. PSYCHIATRIC: Affect is appropriate. LABORATORY DATA: White count 5, hemoglobin 10.2, platelets of 221, segs are 74, lymphs 18. Creatinine is 0.5. AST was elevated at 63, ALT 64, alkaline phosphatase 197. Urinalysis, again concerning for urinary tract infection. IMPRESSION: 1. Strep sepsis, but Enterococcus is also possible ____. 2. Urinary tract infection. 3. Fever. 4. Leukocytosis. 5. Psoriasis. RECOMMENDATIONS: For now, we will discontinue the Zosyn, will continue the vancomycin, will add Rocephin. We will follow up on labs and cultures. Thank you for allowing me to participate in the patient's care. If you have any questions, please do not hesitate to contact me. YECENIA CORNEJO MD DR: SUNDAR/rosa JOB#: [id number] / [id number]
--- NOTE | 2016-11-22 15:28 | PDOC ---
PROGRESS NOTES Chief Complaint Chief Complaint 1. Community-acquired pneumonia, failed outpatient antibiotics. 2. Elevated bilirubin with mild AST and ALT. 3. GPC bacteremia History of Present Illness History of Present Illness no fever no chills breathing easier, , DCZosyn and vancomycin for rocephin, may DC tomorrow follow blood cx clinically improving ID consult appreciated supportive care. Vitals Vitals Vital Signs Date Time Temp Pulse Resp B/P Pulse Ox O2 Delivery O2 Flow Rate FiO2 11/22/16 11:38 97.5 73 16 107/71 94 Room Air 97.5 11/21/16 17:42 3.0 Physical Exam General: Alert, Oriented X3 Heart: Normal S1, Normal S2 Lungs: Clear Abdomen: Normal bowel sounds Extremities: No clubbing Skin: No rashes Labs LABS Laboratory Tests Test 11/22/16 06:50 White Blood Count 4.0x10^3/uL (4.0-11.0) Red Blood Count 3.57x10^6/uL (3.50-5.40) Hemoglobin 10.3g/dL (12.0-15.5) Hematocrit 31.2% (36.0-47.0) Mean Corpuscular Volume 87fL (79-100) Mean Corpuscular Hemoglobin 29pg (25-35) Mean Corpuscular Hemoglobin Concent 33g/dL (31-37) Red Cell Distribution Width 13.4% (11.5-14.5) Platelet Count 228x10^3/uL (140-400) Neutrophils (%) (Auto) 71% (31-73) Lymphocytes (%) (Auto) 20% (24-48) Monocytes (%) (Auto) 6% (0-9) Eosinophils (%) (Auto) 2% (0-3) Basophils (%) (Auto) 1% (0-3) Neutrophils # (Auto) 2.9x10^3uL (1.8-7.7) Lymphocytes # (Auto) 0.8x10^3/uL (1.0-4.8) Monocytes # (Auto) 0.3x10^3/uL (0.0-1.1) Eosinophils # (Auto) 0.1x10^3/uL (0.0-0.7) Basophils # (Auto) 0.0x10^3/uL (0.0-0.2) Sodium Level 144mmol/L (136-145) Potassium Level 4.0mmol/L (3.5-5.1) Chloride Level 107mmol/L (98-107) Carbon Dioxide Level 25mmol/L (21-32) Anion Gap 12 (6-14) Blood Urea Nitrogen 6mg/dL (7-20) Creatinine 0.5mg/dL (0.6-1.0) Estimated GFR (Cockcroft-Gault) 143.0 BUN/Creatinine Ratio 12 (6-20) Glucose Level 104mg/dL (70-99) Calcium Level 8.8mg/dL (8.5-10.1) Total Bilirubin 0.5mg/dL (0.2-1.0) Aspartate Amino Transf (AST/SGOT) 44U/L (15-37) Alanine Aminotransferase (ALT/SGPT) 40U/L (14-59) Alkaline Phosphatase 147U/L (46-116) Total Protein 5.2g/dL (6.4-8.2) Albumin 2.9g/dL (3.4-5.0) Albumin/Globulin Ratio 1.3 (1.0-1.7) Assessment and Plan Assessmemt and Plan Problems Medical Problems: (1) Healthcare-associated pneumonia Status: Acute Problems: Comment Review of Relevant I have reviewed the following items austin (where applicable) has been applied. Labs Laboratory Tests Test 11/21/16 03:32 11/21/16 11:20 11/22/16 06:50 White Blood Count 5.0x10^3/uL (4.0-11.0) 4.0x10^3/uL (4.0-11.0) Red Blood Count 3.45x10^6/uL (3.50-5.40) 3.57x10^6/uL (3.50-5.40) Hemoglobin 10.2g/dL (12.0-15.5) 10.3g/dL (12.0-15.5) Hematocrit 29.8% (36.0-47.0) 31.2% (36.0-47.0) Mean Corpuscular Volume 86fL (79-100) 87fL (79-100) Mean Corpuscular Hemoglobin 30pg (25-35) 29pg (25-35) Mean Corpuscular Hemoglobin Concent 34g/dL (31-37) 33g/dL (31-37) Red Cell Distribution Width 13.7% (11.5-14.5) 13.4% (11.5-14.5) Platelet Count 221x10^3/uL (140-400) 228x10^3/uL (140-400) Neutrophils (%) (Auto) 74% (31-73) 71% (31-73) Lymphocytes (%) (Auto) 18% (24-48) 20% (24-48) Monocytes (%) (Auto) 6% (0-9) 6% (0-9) Eosinophils (%) (Auto) 2% (0-3) 2% (0-3) Basophils (%) (Auto) 1% (0-3) 1% (0-3) Neutrophils # (Auto) 3.7x10^3uL (1.8-7.7) 2.9x10^3uL (1.8-7.7) Lymphocytes # (Auto) 0.9x10^3/uL (1.0-4.8) 0.8x10^3/uL (1.0-4.8) Monocytes # (Auto) 0.3x10^3/uL (0.0-1.1) 0.3x10^3/uL (0.0-1.1) Eosinophils # (Auto) 0.1x10^3/uL (0.0-0.7) 0.1x10^3/uL (0.0-0.7) Basophils # (Auto) 0.0x10^3/uL (0.0-0.2) 0.0x10^3/uL (0.0-0.2) Sodium Level 144mmol/L (136-145) 144mmol/L (136-145) Potassium Level 3.4mmol/L (3.5-5.1) 4.0mmol/L (3.5-5.1) Chloride Level 107mmol/L (98-107) 107mmol/L (98-107) Carbon Dioxide Level 24mmol/L (21-32) 25mmol/L (21-32) Anion Gap 13 (6-14) 12 (6-14) Blood Urea Nitrogen 8mg/dL (7-20) 6mg/dL (7-20) Creatinine 0.5mg/dL (0.6-1.0) 0.5mg/dL (0.6-1.0) Estimated GFR (Cockcroft-Gault) 143.0 143.0 Glucose Level 101mg/dL (70-99) 104mg/dL (70-99) Calcium Level 8.5mg/dL (8.5-10.1) 8.8mg/dL (8.5-10.1) Vancomycin Level Trough 5.7mcg/mL (10.0-20.0) Vancomycin Last Dose Date Unknown Vancomycin Last Dose Time Unknown BUN/Creatinine Ratio 12 (6-20) Total Bilirubin 0.5mg/dL (0.2-1.0) Aspartate Amino Transf (AST/SGOT) 44U/L (15-37) Alanine Aminotransferase (ALT/SGPT) 40U/L (14-59) Alkaline Phosphatase 147U/L (46-116) Total Protein 5.2g/dL (6.4-8.2) Albumin 2.9g/dL (3.4-5.0) Albumin/Globulin Ratio 1.3 (1.0-1.7) Laboratory Tests Test 11/22/16 06:50 White Blood Count 4.0x10^3/uL (4.0-11.0) Red Blood Count 3.57x10^6/uL (3.50-5.40) Hemoglobin 10.3g/dL (12.0-15.5) Hematocrit 31.2% (36.0-47.0) Mean Corpuscular Volume 87fL (79-100) Mean Corpuscular Hemoglobin 29pg (25-35) Mean Corpuscular Hemoglobin Concent 33g/dL (31-37) Red Cell Distribution Width 13.4% (11.5-14.5) Platelet Count 228x10^3/uL (140-400) Neutrophils (%) (Auto) 71% (31-73) Lymphocytes (%) (Auto) 20% (24-48) Monocytes (%) (Auto) 6% (0-9) Eosinophils (%) (Auto) 2% (0-3) Basophils (%) (Auto) 1% (0-3) Neutrophils # (Auto) 2.9x10^3uL (1.8-7.7) Lymphocytes # (Auto) 0.8x10^3/uL (1.0-4.8) Monocytes # (Auto) 0.3x10^3/uL (0.0-1.1) Eosinophils # (Auto) 0.1x10^3/uL (0.0-0.7) Basophils # (Auto) 0.0x10^3/uL (0.0-0.2) Sodium Level 144mmol/L (136-145) Potassium Level 4.0mmol/L (3.5-5.1) Chloride Level 107mmol/L (98-107) Carbon Dioxide Level 25mmol/L (21-32) Anion Gap 12 (6-14) Blood Urea Nitrogen 6mg/dL (7-20) Creatinine 0.5mg/dL (0.6-1.0) Estimated GFR (Cockcroft-Gault) 143.0 BUN/Creatinine Ratio 12 (6-20) Glucose Level 104mg/dL (70-99) Calcium Level 8.8mg/dL (8.5-10.1) Total Bilirubin 0.5mg/dL (0.2-1.0) Aspartate Amino Transf (AST/SGOT) 44U/L (15-37) Alanine Aminotransferase (ALT/SGPT) 40U/L (14-59) Alkaline Phosphatase 147U/L (46-116) Total Protein 5.2g/dL (6.4-8.2) Albumin 2.9g/dL (3.4-5.0) Albumin/Globulin Ratio 1.3 (1.0-1.7) Microbiology 11/20/16 Blood Culture - Preliminary, Resulted 11/20/16 Blood Culture Result 1 (ELEAZAR) - Preliminary, Resulted 11/19/16 Urine Culture - Final, Complete 11/19/16 Urine Culture Result 1 (ELEAZAR) - Final, Complete Medications Current Medications Acetaminophen (Tylenol) 500 mg 1X ONCE PO Last administered on 11/19/16 22:18 ; Start 11/19/16 at 22:30; Stop 11/19/16 at 22:31; Status DC Acetaminophen/ Hydrocodone Bitart (Lortab 5/325) 1 tab 1X ONCE PO Last administered on 11/19/16 22:18; Start 11/19/16 at 22:30; Stop 11/19/16 at 22:31 ; Status DC Promethazine HCl 25 mg 25 mg 1X ONCE IM Last administered on 11/19/16 22:54; Start 11/19/16 at 23:15; Stop 11/19/16 at 23:16; Status DC Sodium Chloride 1,000 ml @ 1,000 mls/hr Q1H IV Last administered on 11/20/16 00:07; Start 11/20/16 at 00:00; Stop 11/20/16 at 00:59; Status DC Piperacillin Sod/ Tazobactam Sod 3.375 gm/Sodium Chloride 50 ml @ 100 mls/hr 1X ONCE IV Last administered on 11/20/16 00:07; Start 11/20/16 at 00:00; Stop 11/20/16 at 00:29; Status DC Ciprofloxacin Lactate (Cipro 400mg Premix) 200 ml @ 200 mls/hr Q12HR IV Last administered on 11/20/16 08:58; Start 11/20/16 at 01:00; Stop 11/20/16 at 16:03 ; Status DC Vancomycin HCl (Vanco Per Pharmacy) 1 each PRN DAILY PRN MC SEE COMMENTS Last administered on 11/21/16 13:15; Start 11/19/16 at 23:45; Stop 11/22/16 at 11:48 ; Status DC Albuterol/ Ipratropium 3 ml 3 ml 1X ONCE NEB Last administered on 11/20/16 00 :02; Start 11/20/16 at 00:00; Stop 11/20/16 at 00:01; Status DC Vancomycin HCl/ Sodium Chloride (Iv Sodium Chloride 0.9% 500ml Bag) 500 ml @ 250 mls/hr 1X ONCE IV Last administered on 11/20/16 00:58; Start 11/20/16 at 00:30; Stop 11/20/16 at 02:29; Status DC Ondansetron HCl 4 mg 4 mg PRN Q8HRS PRN IV NAUSEA/VOMITING; Start 11/20/16 at 00:15; Stop 11/20/16 at 08:20; Status DC Sodium Chloride (Iv Sodium Chloride 0.9% 1000ml Bag) 1,000 ml @ 150 mls/hr Q6H40M IV ; Start 11/20/16 at 00:08; Stop 11/20/16 at 12:44; Status DC Acetaminophen (Tylenol) 650 mg PRN Q4HRS PRN PO FEVER; Start 11/20/16 at 00:15 ; Stop 11/20/16 at 08:20; Status DC Albuterol/ Ipratropium (Duoneb) 3 ml RTQID NEB Last administered on 11/21/16 07:30; Start 11/20/16 at 08:00; Stop 11/21/16 at 07:59; Status DC Piperacillin Sod/ Tazobactam Sod (Zosyn Per Pharmacy) 1 each PRN DAILY PRN MC SEE COMMENTS; Start 11/20/16 at 00:15; Stop 11/21/16 at 10:30; Status DC Vancomycin HCl 1 each 1 each PRN DAILY PRN MC SEE COMMENTS; Start 11/20/16 at 00:15; Status UNV Ciprofloxacin Lactate (Cipro 400mg Premix) 200 ml @ 200 mls/hr Q12HR IV ; Start 11/20/16 at 09:00; Status UNV Info (Do NOT chart on this placeholder) 1 each ONCE ONCE MC ; Start 11/20/16 at 01:30; Stop 11/20/16 at 01:31; Status UNV Pneumococcal Polyvalent Vaccine (Do NOT chart on this placeholder) 1 each ONCE ONCE MC ; Start 11/20/16 at 01:30; Stop 11/20/16 at 01:31; Status UNV Influenza Virus Vaccine Quadrival (Fluarix Quad 8337-1214 Syringe) 0.5 ml ONCE ONCE VAX IM ; Start 11/20/16 at 09:00; Stop 11/20/16 at 09:01; Status DC Pneumococcal Polyvalent Vaccine 0.5 ml 0.5 ml ONCE ONCE VAX IM ; Start 11/20/16 at 09:00; Stop 11/20/16 at 09:01; Status DC Piperacillin Sod/ Tazobactam Sod 3.375 gm/Sodium Chloride 50 ml @ 100 mls/hr Q6HRS IV Last administered on 11/20/16 05:39; Start 11/20/16 at 06:00; Stop at 09:17; Status DC Vancomycin HCl/ Sodium Chloride (Iv Sodium Chloride 0.9% 250ml) 250 ml @ 250 mls/hr Q12H IV Last administered on 11/21/16 00:25; Start 11/20/16 at 12:00; Stop 11/21/16 at 13:06; Status DC Vancomycin HCl 1 each 1X ONCE MC Last administered on 11/21/16 11:30; Start 11/21/16 at 11:30; Stop 11/21/16 at 11:31; Status DC Acetaminophen (Tylenol) 325 mg PRN Q6HRS PRN PO MILD PAIN / TEMP Last administered on 11/21/16 09:43; Start 11/20/16 at 08:30 Acetaminophen/ Hydrocodone Bitart (Lortab 5/325) 1 tab PRN Q6HRS PRN PO MODERATE TO SEVERE PAIN; Start 11/20/16 at 08:30 Hydralazine HCl (Apresoline) 10 mg PRN Q4HRS PRN IVP ELEVATED BP, SEE COMMENTS ; Start 11/20/16 at 08:30 Ondansetron HCl (Zofran) 4 mg PRN Q8HRS PRN IV NAUSEA/VOMITING Last administered on 11/21/16 01:46; Start 11/20/16 at 08:30 Albuterol Sulfate 2.5 mg 2.5 mg PRN Q4HRS PRN NEB SHORTNESS OF BREATH; Start at 08:30 Piperacillin Sod/ Tazobactam Sod/ Sodium Chloride (Zosyn/Iv Sodium Chloride 0.9 % 50ml) 50 ml @ 100 mls/hr Q6HRS IV Last administered on 11/21/16 05:53; Start 11/20/16 at 09:00; Stop 11/21/16 at 10:28; Status DC Vancomycin HCl 1 each 1 each PRN DAILY PRN MC SEE COMMENTS; Start 11/20/16 at 08:45; Status UNV Sodium Chloride 1,000 ml @ 75 mls/hr [id number] IV Last administered on 01:46; Start 11/20/16 at 09:00; Stop 11/22/16 at 11:48; Status DC Vancomycin HCl/ Sodium Chloride (Iv Sodium Chloride 0.9% 500ml Bag) 500 ml @ 250 mls/hr 1X ONCE IV ; Start 11/20/16 at 09:00; Stop 11/20/16 at 10:59; Status Cancel Potassium Chloride 20 meq 20 meq 1X ONCE PO Last administered on 11/20/16 13: 02; Start 11/20/16 at 12:45; Stop 11/20/16 at 12:46; Status DC Ceftriaxone Sodium 2 gm/ Sodium Chloride 100 ml @ 200 mls/hr Q24H IV Last administered on 11/22/16 10:57; Start 11/21/16 at 11:00 Vancomycin HCl/ Sodium Chloride (Iv Sodium Chloride 0.9% 250ml) 250 ml @ 167 mls/hr Q8H IV Last administered on 11/22/16 09:39; Start 11/21/16 at 13:30; Stop 11/22/16 at 11:48; Status DC Guaifenesin (Robitussin) 200 mg PRN Q4HRS PRN PO COUGH Last administered on 02:41; Start 11/22/16 at 02:30 Vitals/I & O Vital Sign - Last 24 Hours 11/21/16 11/21/16 11/21/16 11/21/16 17:42 19:00 20:00 23:00 Temp 99.9 97.9 99.1 99.9 97.9 99.1 Pulse 98 87 91 Resp B/P 198/92 112/78 118/69 Pulse Ox 97 97 94 O2 Delivery Nasal Cannula Room Air Room Air Room Air O2 Flow Rate 3.0 11/22/16 11/22/16 11/22/16 03:00 07:00 11:38 Temp 99.3 99.3 97.5 99.3 99.3 97.5 Pulse 77 88 73 Resp 16 B/P 102/65 107/72 107/71 Pulse Ox 95 94 94 O2 Delivery Room Air Room Air Room Air Intake and Output 11/21/16 11/21/16 11/22/16 15:00 23:00 07:00 Intake Total 490 ml 730 ml Balance 490 ml 730 ml RAFAEL CAGLE MD Nov 22, 2016 15:28
[2016-11-22 15:36] VITALS: BP 107/66
[2016-11-22 19:00] VITALS: BP 119/80
[2016-11-22 23:00] VITALS: BP 132/78
[2016-11-23 03:00] VITALS: BP 108/77
[2016-11-23 04:22] LABS: CALCIUM 9.1 mg/dL (8.5-10.1); CREATININE 0.6 mg/dL (0.6-1.0); GFR 115.9; POTASSIUM 3.8 mmol/L (3.5-5.1)
[2016-11-23 04:28] LABS: BASO % 1 % (0-3); EOS % 2 % (0-3); HEMOGLOBIN 11.3 g/dL (12.0-15.5); LYMPH % 17 % (24-48); MEAN CORPUSCULAR HEMOGLOBIN 30 pg (25-35); MEAN CORPUSCULAR HGB CONC 34 g/dL (31-37); MEAN CORPUSCULAR VOLUME 87 fL (79-100); MONO % 6 % (0-9); NEUT % 75 % (31-73); PLATELET COUNT 266 x10^3/uL (140-400); RED BLOOD COUNT 3.81 x10^6/uL (3.50-5.40); RED CELL DISTRIBUTION WIDTH 13.7 % (11.5-14.5); WHITE BLOOD COUNT 5.9 x10^3/uL (4.0-11.0)
[2016-11-23 09:02] VITALS: BP 108/75
--- NOTE | 2016-11-23 09:05 | PDOC ---
PROGRESS NOTES Chief Complaint Chief Complaint 1. Strep Pneumonia, failed outpatient antibiotics. 2. Elevated bilirubin with mild AST and ALT elevation 3. GPC bacteremia 4. UTI 5. Fever 6. Leukocytosis History of Present Illness History of Present Illness Pt resting with NAD Breathing easier Probable D/C today if ok with ID Will continue OP antibiotics Vitals Vitals Vital Signs Date Time Temp Pulse Resp B/P Pulse Ox O2 Delivery O2 Flow Rate FiO2 11/23/16 03:00 98.9 90 18 108/77 97 Room Air 98.9 Physical Exam General: Alert, Oriented X3 Heart: Normal S1, Normal S2 Lungs: Clear, Other (No wheezing) Abdomen: Normal bowel sounds, No tenderness Extremities: No clubbing, No edema Skin: No rashes, No breakdown Labs LABS Laboratory Tests Test 11/23/16 03:25 11/23/16 03:35 Sodium Level 142mmol/L (136-145) Potassium Level 3.8mmol/L (3.5-5.1) Chloride Level 106mmol/L (98-107) Carbon Dioxide Level 25mmol/L (21-32) Anion Gap 11 (6-14) Blood Urea Nitrogen 7mg/dL (7-20) Creatinine 0.6mg/dL (0.6-1.0) Estimated GFR (Cockcroft-Gault) 115.9 Glucose Level 107mg/dL (70-99) Calcium Level 9.1mg/dL (8.5-10.1) White Blood Count 5.9x10^3/uL (4.0-11.0) Red Blood Count 3.81x10^6/uL (3.50-5.40) Hemoglobin 11.3g/dL (12.0-15.5) Hematocrit 33.0% (36.0-47.0) Mean Corpuscular Volume 87fL (79-100) Mean Corpuscular Hemoglobin 30pg (25-35) Mean Corpuscular Hemoglobin Concent 34g/dL (31-37) Red Cell Distribution Width 13.7% (11.5-14.5) Platelet Count 266x10^3/uL (140-400) Neutrophils (%) (Auto) 75% (31-73) Lymphocytes (%) (Auto) 17% (24-48) Monocytes (%) (Auto) 6% (0-9) Eosinophils (%) (Auto) 2% (0-3) Basophils (%) (Auto) 1% (0-3) Neutrophils # (Auto) 4.5x10^3uL (1.8-7.7) Lymphocytes # (Auto) 1.0x10^3/uL (1.0-4.8) Monocytes # (Auto) 0.3x10^3/uL (0.0-1.1) Eosinophils # (Auto) 0.1x10^3/uL (0.0-0.7) Basophils # (Auto) 0.0x10^3/uL (0.0-0.2) Review of Systems Review of Systems Complains of cough Complains of fatigue Assessment and Plan Assessmemt and Plan Problems Medical Problems: (1) Healthcare-associated pneumonia Status: Acute Assessment: 1. Strep Pneumonia, failed outpatient antibiotics. 2. Elevated bilirubin with mild AST and ALT elevation 3. GPC bacteremia 4. UTI 5. Fever 6. Leukocytosis Plan: Probable D/C if ok with ID P/O Augmentin to replace IV Rocephin Stopped Vanc and IVF Continue home meds Appreciate input from subspecialty Problems: Comment Review of Relevant I have reviewed the following items austin (where applicable) has been applied. Labs Laboratory Tests Test 11/21/16 11:20 11/22/16 06:50 11/23/16 03:25 11/23/16 03:35 Vancomycin Level Trough 5.7mcg/mL (10.0-20.0) Vancomycin Last Dose Date Unknown Vancomycin Last Dose Time Unknown White Blood Count 4.0x10^3/uL (4.0-11.0) 5.9x10^3/uL (4.0-11.0) Red Blood Count 3.57x10^6/uL (3.50-5.40) 3.81x10^6/uL (3.50-5.40) Hemoglobin 10.3g/dL (12.0-15.5) 11.3g/dL (12.0-15.5) Hematocrit 31.2% (36.0-47.0) 33.0% (36.0-47.0) Mean Corpuscular Volume 87fL (79-100) 87fL (79-100) Mean Corpuscular Hemoglobin 29pg (25-35) 30pg (25-35) Mean Corpuscular Hemoglobin Concent 33g/dL (31-37) 34g/dL (31-37) Red Cell Distribution Width 13.4% (11.5-14.5) 13.7% (11.5-14.5) Platelet Count 228x10^3/uL (140-400) 266x10^3/uL (140-400) Neutrophils (%) (Auto) 71% (31-73) 75% (31-73) Lymphocytes (%) (Auto) 20% (24-48) 17% (24-48) Monocytes (%) (Auto) 6% (0-9) 6% (0-9) Eosinophils (%) (Auto) 2% (0-3) 2% (0-3) Basophils (%) (Auto) 1% (0-3) 1% (0-3) Neutrophils # (Auto) 2.9x10^3uL (1.8-7.7) 4.5x10^3uL (1.8-7.7) Lymphocytes # (Auto) 0.8x10^3/uL (1.0-4.8) 1.0x10^3/uL (1.0-4.8) Monocytes # (Auto) 0.3x10^3/uL (0.0-1.1) 0.3x10^3/uL (0.0-1.1) Eosinophils # (Auto) 0.1x10^3/uL (0.0-0.7) 0.1x10^3/uL (0.0-0.7) Basophils # (Auto) 0.0x10^3/uL (0.0-0.2) 0.0x10^3/uL (0.0-0.2) Sodium Level 144mmol/L (136-145) 142mmol/L (136-145) Potassium Level 4.0mmol/L (3.5-5.1) 3.8mmol/L (3.5-5.1) Chloride Level 107mmol/L (98-107) 106mmol/L (98-107) Carbon Dioxide Level 25mmol/L (21-32) 25mmol/L (21-32) Anion Gap 12 (6-14) 11 (6-14) Blood Urea Nitrogen 6mg/dL (7-20) 7mg/dL (7-20) Creatinine 0.5mg/dL (0.6-1.0) 0.6mg/dL (0.6-1.0) Estimated GFR (Cockcroft-Gault) 143.0 115.9 BUN/Creatinine Ratio 12 (6-20) Glucose Level 104mg/dL (70-99) 107mg/dL (70-99) Calcium Level 8.8mg/dL (8.5-10.1) 9.1mg/dL (8.5-10.1) Total Bilirubin 0.5mg/dL (0.2-1.0) Aspartate Amino Transf (AST/SGOT) 44U/L (15-37) Alanine Aminotransferase (ALT/SGPT) 40U/L (14-59) Alkaline Phosphatase 147U/L (46-116) Total Protein 5.2g/dL (6.4-8.2) Albumin 2.9g/dL (3.4-5.0) Albumin/Globulin Ratio 1.3 (1.0-1.7) Laboratory Tests Test 11/23/16 03:25 11/23/16 03:35 Sodium Level 142mmol/L (136-145) Potassium Level 3.8mmol/L (3.5-5.1) Chloride Level 106mmol/L (98-107) Carbon Dioxide Level 25mmol/L (21-32) Anion Gap 11 (6-14) Blood Urea Nitrogen 7mg/dL (7-20) Creatinine 0.6mg/dL (0.6-1.0) Estimated GFR (Cockcroft-Gault) 115.9 Glucose Level 107mg/dL (70-99) Calcium Level 9.1mg/dL (8.5-10.1) White Blood Count 5.9x10^3/uL (4.0-11.0) Red Blood Count 3.81x10^6/uL (3.50-5.40) Hemoglobin 11.3g/dL (12.0-15.5) Hematocrit 33.0% (36.0-47.0) Mean Corpuscular Volume 87fL (79-100) Mean Corpuscular Hemoglobin 30pg (25-35) Mean Corpuscular Hemoglobin Concent 34g/dL (31-37) Red Cell Distribution Width 13.7% (11.5-14.5) Platelet Count 266x10^3/uL (140-400) Neutrophils (%) (Auto) 75% (31-73) Lymphocytes (%) (Auto) 17% (24-48) Monocytes (%) (Auto) 6% (0-9) Eosinophils (%) (Auto) 2% (0-3) Basophils (%) (Auto) 1% (0-3) Neutrophils # (Auto) 4.5x10^3uL (1.8-7.7) Lymphocytes # (Auto) 1.0x10^3/uL (1.0-4.8) Monocytes # (Auto) 0.3x10^3/uL (0.0-1.1) Eosinophils # (Auto) 0.1x10^3/uL (0.0-0.7) Basophils # (Auto) 0.0x10^3/uL (0.0-0.2) Microbiology 11/20/16 Blood Culture - Preliminary, Resulted 11/20/16 Blood Culture Result 1 (ELEAZAR) - Preliminary, Resulted 11/19/16 Urine Culture - Final, Complete 11/19/16 Urine Culture Result 1 (ELEAZAR) - Final, Complete Medications Current Medications Acetaminophen (Tylenol) 500 mg 1X ONCE PO Last administered on 11/19/16 22:18 ; Start 11/19/16 at 22:30; Stop 11/19/16 at 22:31; Status DC Acetaminophen/ Hydrocodone Bitart (Lortab 5/325) 1 tab 1X ONCE PO Last administered on 11/19/16 22:18; Start 11/19/16 at 22:30; Stop 11/19/16 at 22:31 ; Status DC Promethazine HCl 25 mg 25 mg 1X ONCE IM Last administered on 11/19/16 22:54; Start 11/19/16 at 23:15; Stop 11/19/16 at 23:16; Status DC Sodium Chloride 1,000 ml @ 1,000 mls/hr Q1H IV Last administered on 11/20/16 00:07; Start 11/20/16 at 00:00; Stop 11/20/16 at 00:59; Status DC Piperacillin Sod/ Tazobactam Sod 3.375 gm/Sodium Chloride 50 ml @ 100 mls/hr 1X ONCE IV Last administered on 11/20/16 00:07; Start 11/20/16 at 00:00; Stop 11/20/16 at 00:29; Status DC Ciprofloxacin Lactate (Cipro 400mg Premix) 200 ml @ 200 mls/hr Q12HR IV Last administered on 11/20/16 08:58; Start 11/20/16 at 01:00; Stop 11/20/16 at 16:03 ; Status DC Vancomycin HCl (Vanco Per Pharmacy) 1 each PRN DAILY PRN MC SEE COMMENTS Last administered on 11/21/16 13:15; Start 11/19/16 at 23:45; Stop 11/22/16 at 11:48 ; Status DC Albuterol/ Ipratropium 3 ml 3 ml 1X ONCE NEB Last administered on 11/20/16 00 :02; Start 11/20/16 at 00:00; Stop 11/20/16 at 00:01; Status DC Vancomycin HCl/ Sodium Chloride (Iv Sodium Chloride 0.9% 500ml Bag) 500 ml @ 250 mls/hr 1X ONCE IV Last administered on 11/20/16 00:58; Start 11/20/16 at 00:30; Stop 11/20/16 at 02:29; Status DC Ondansetron HCl 4 mg 4 mg PRN Q8HRS PRN IV NAUSEA/VOMITING; Start 11/20/16 at 00:15; Stop 11/20/16 at 08:20; Status DC Sodium Chloride (Iv Sodium Chloride 0.9% 1000ml Bag) 1,000 ml @ 150 mls/hr Q6H40M IV ; Start 11/20/16 at 00:08; Stop 11/20/16 at 12:44; Status DC Acetaminophen (Tylenol) 650 mg PRN Q4HRS PRN PO FEVER; Start 11/20/16 at 00:15 ; Stop 11/20/16 at 08:20; Status DC Albuterol/ Ipratropium (Duoneb) 3 ml RTQID NEB Last administered on 11/21/16 07:30; Start 11/20/16 at 08:00; Stop 11/21/16 at 07:59; Status DC Piperacillin Sod/ Tazobactam Sod (Zosyn Per Pharmacy) 1 each PRN DAILY PRN MC SEE COMMENTS; Start 11/20/16 at 00:15; Stop 11/21/16 at 10:30; Status DC Vancomycin HCl 1 each 1 each PRN DAILY PRN MC SEE COMMENTS; Start 11/20/16 at 00:15; Status UNV Ciprofloxacin Lactate (Cipro 400mg Premix) 200 ml @ 200 mls/hr Q12HR IV ; Start 11/20/16 at 09:00; Status UNV Info (Do NOT chart on this placeholder) 1 each ONCE ONCE MC ; Start 11/20/16 at 01:30; Stop 11/20/16 at 01:31; Status UNV Pneumococcal Polyvalent Vaccine (Do NOT chart on this placeholder) 1 each ONCE ONCE MC ; Start 11/20/16 at 01:30; Stop 11/20/16 at 01:31; Status UNV Influenza Virus Vaccine Quadrival (Fluarix Quad [id number] Syringe) 0.5 ml ONCE ONCE VAX IM ; Start 11/20/16 at 09:00; Stop 11/20/16 at 09:01; Status DC Pneumococcal Polyvalent Vaccine 0.5 ml 0.5 ml ONCE ONCE VAX IM ; Start 11/20/16 at 09:00; Stop 11/20/16 at 09:01; Status DC Piperacillin Sod/ Tazobactam Sod 3.375 gm/Sodium Chloride 50 ml @ 100 mls/hr Q6HRS IV Last administered on 11/20/16 05:39; Start 11/20/16 at 06:00; Stop at 09:17; Status DC Vancomycin HCl/ Sodium Chloride (Iv Sodium Chloride 0.9% 250ml) 250 ml @ 250 mls/hr Q12H IV Last administered on 11/21/16 00:25; Start 11/20/16 at 12:00; Stop 11/21/16 at 13:06; Status DC Vancomycin HCl 1 each 1X ONCE MC Last administered on 11/21/16 11:30; Start 11/21/16 at 11:30; Stop 11/21/16 at 11:31; Status DC Acetaminophen (Tylenol) 325 mg PRN Q6HRS PRN PO MILD PAIN / TEMP Last administered on 11/21/16 09:43; Start 11/20/16 at 08:30 Acetaminophen/ Hydrocodone Bitart (Lortab 5/325) 1 tab PRN Q6HRS PRN PO MODERATE TO SEVERE PAIN; Start 11/20/16 at 08:30 Hydralazine HCl (Apresoline) 10 mg PRN Q4HRS PRN IVP ELEVATED BP, SEE COMMENTS ; Start 11/20/16 at 08:30 Ondansetron HCl (Zofran) 4 mg PRN Q8HRS PRN IV NAUSEA/VOMITING Last administered on 11/21/16 01:46; Start 11/20/16 at 08:30 Albuterol Sulfate 2.5 mg 2.5 mg PRN Q4HRS PRN NEB SHORTNESS OF BREATH; Start at 08:30 Piperacillin Sod/ Tazobactam Sod/ Sodium Chloride (Zosyn/Iv Sodium Chloride 0.9 % 50ml) 50 ml @ 100 mls/hr Q6HRS IV Last administered on 11/21/16 05:53; Start 11/20/16 at 09:00; Stop 11/21/16 at 10:28; Status DC Vancomycin HCl 1 each 1 each PRN DAILY PRN MC SEE COMMENTS; Start 11/20/16 at 08:45; Status UNV Sodium Chloride 1,000 ml @ 75 mls/hr [id number] IV Last administered on 01:46; Start 11/20/16 at 09:00; Stop 11/22/16 at 11:48; Status DC Vancomycin HCl/ Sodium Chloride (Iv Sodium Chloride 0.9% 500ml Bag) 500 ml @ 250 mls/hr 1X ONCE IV ; Start 11/20/16 at 09:00; Stop 11/20/16 at 10:59; Status Cancel Potassium Chloride 20 meq 20 meq 1X ONCE PO Last administered on 11/20/16 13: 02; Start 11/20/16 at 12:45; Stop 11/20/16 at 12:46; Status DC Ceftriaxone Sodium 2 gm/ Sodium Chloride 100 ml @ 200 mls/hr Q24H IV Last administered on 11/22/16 10:57; Start 11/21/16 at 11:00 Vancomycin HCl/ Sodium Chloride (Iv Sodium Chloride 0.9% 250ml) 250 ml @ 167 mls/hr Q8H IV Last administered on 11/22/16 09:39; Start 11/21/16 at 13:30; Stop 11/22/16 at 11:48; Status DC Guaifenesin (Robitussin) 200 mg PRN Q4HRS PRN PO COUGH Last administered on t 02:41; Start 11/22/16 at 02:30 Vitals/I & O Vital Sign - Last 24 Hours 11/22/16 11/22/16 11/22/16 11/22/16 11:38 15:36 19:00 20:00 Temp 97.5 97.6 98.8 97.5 97.6 98.8 Pulse 73 78 80 Resp 16 16 18 B/P 107/71 107/66 119/80 Pulse Ox 94 97 97 O2 Delivery Room Air Room Air Room Air Room Air 11/22/16 11/23/16 23:00 03:00 Temp 99.1 98.9 99.1 98.9 Pulse 68 90 Resp 18 18 B/P 132/78 108/77 Pulse Ox 99 97 O2 Delivery Room Air Room Air Intake and Output 11/22/16 11/22/16 11/23/16 15:00 23:00 07:00 Intake Total 480 ml 875 ml Balance 480 ml 875 ml SHABANA RUBIO III DO Nov 23, 2016 09:05
[2016-11-23] MEDS: GUAIFENESIN 200 MG/10 ML LIQUID. PO PRN (09:07)
[2016-11-23 11:15] VITALS: BP 103/60
[2016-11-23] MEDS: CEFTRIAXONE SODIUM 2 GM in IV NORMAL SALINE 100ML 100 ML IV SCH (11:52)
--- NOTE | 2016-11-23 12:06 | PDOC ---
Infectious Disease Note Subjective Subjective Better. no dysuria Occ cough but only at night - better ROS ROS GEN: Denies fevers, chills, sweats HEENT: Denies blurred vision, sore throat CV: Denies chest pain RESP: Denies shortness of air, cough GI: Denies n/v/d NEURO: Denies confusion, dizziness MSK: Denies weakness, joint pain/swelling Vital Sign Vital Signs Vital Signs Date Time Temp Pulse Resp B/P Pulse Ox O2 Delivery O2 Flow Rate FiO2 11/23/16 11:15 98.5 87 103/60 96 Room Air 98.5 11/23/16 03:00 18 Physical Exam PHYSICAL EXAM GENERAL: NAD, Alert HEENT: PERRL, OC/OP- clear NECK: Supple, no JVD, no LN LUNGS: Clear HEART: S1S2, no gallop, no murmur ABD: Soft, NT, no organomegaly, no rebound EXT: No edema, no cyanosis WEBBING INSPECTOR: Alert, 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, no focal neurologic deficit SKIN: No rash IV: ok Labs Lab Laboratory Tests Test 11/23/16 03:25 11/23/16 03:35 Sodium Level 142mmol/L (136-145) Potassium Level 3.8mmol/L (3.5-5.1) Chloride Level 106mmol/L (98-107) Carbon Dioxide Level 25mmol/L (21-32) Anion Gap 11 (6-14) Blood Urea Nitrogen 7mg/dL (7-20) Creatinine 0.6mg/dL (0.6-1.0) Estimated GFR (Cockcroft-Gault) 115.9 Glucose Level 107mg/dL (70-99) Calcium Level 9.1mg/dL (8.5-10.1) White Blood Count 5.9x10^3/uL (4.0-11.0) Red Blood Count 3.81x10^6/uL (3.50-5.40) Hemoglobin 11.3g/dL (12.0-15.5) Hematocrit 33.0% (36.0-47.0) Mean Corpuscular Volume 87fL (79-100) Mean Corpuscular Hemoglobin 30pg (25-35) Mean Corpuscular Hemoglobin Concent 34g/dL (31-37) Red Cell Distribution Width 13.7% (11.5-14.5) Platelet Count 266x10^3/uL (140-400) Neutrophils (%) (Auto) 75% (31-73) Lymphocytes (%) (Auto) 17% (24-48) Monocytes (%) (Auto) 6% (0-9) Eosinophils (%) (Auto) 2% (0-3) Basophils (%) (Auto) 1% (0-3) Neutrophils # (Auto) 4.5x10^3uL (1.8-7.7) Lymphocytes # (Auto) 1.0x10^3/uL (1.0-4.8) Monocytes # (Auto) 0.3x10^3/uL (0.0-1.1) Eosinophils # (Auto) 0.1x10^3/uL (0.0-0.7) Basophils # (Auto) 0.0x10^3/uL (0.0-0.2) Objective Assessment Strep Pneumo sepsis - POA 11/20 PCN/Levoflo sens - d/w micro UTI Fever Leukocytosis ? psorasis Plan Plan of Care Cont Rocephin Po Levofloxacin 750 po Qday for 7 days for sepsis ok to d/c home Can f/u ID office one week [phone] D/w nursing YECENIA Yuan MD Nov 23, 2016 12:06
== END 2016-11-23 13:40 | disposition home or self-care (01) | DRG 871 ==
LOC: ER 21:34 → 2 NORTH 23:53 → ER 11-20 00:40 → 2 NORTH 11-20 11:20 → 5 NORTH 11-21 11:02
PROVIDERS: ADMIT Internal Medicine; ATTEND Internal Medicine
DX: A40.9 Streptococcal sepsis, unspecified (principal); J15.4 Pneumonia due to other streptococci; N39.0 Urinary tract infection, site not specified; J11.1 Influenza due to unidentified influenza virus with other respiratory manifestations; J45.909 Unspecified asthma, uncomplicated; L40.9 Psoriasis, unspecified; Y95 Nosocomial condition; Z82.5 Family history of asthma and other chronic lower respiratory diseases; Z87.891 Personal history of nicotine dependence
CPT/HCPCS: 36415; 71020; 80048; 80053; 80202; 81001; 81025; 83605; 85007; 85027; 87040; 87086; 87205; 87804; 90686; 90732; 94250; 94640; 94760; 96365; 96372; J0696; J0744; J2405; J2543; J2550; J3370; J7030; J7040; J7050; J7620; 99285-25

== ENCOUNTER 2016-12-20 16:23 | Emergency (ER) | payer SELFPAY ==
[~2016-12-20] VITALS: Ht 157.5 cm; Wt 70.3 kg
[2016-12-20 16:33] VITALS: BP 111/72
[2016-12-20 17:33] LABS: OBC FLU VALID
--- NOTE | 2016-12-20 18:29 | PHYS DOC ---
Past Medical History Past Medical History: Pneumonia Past Surgical History: No Surgical History Smoking: Quit Less Than 1 Year Alcohol Use: None Drug Use: None Adult General Chief Complaint Chief Complaint: COUGH HPI HPI Patient is a 31 year old female who presents with cough and fever for 1 week. She reports that the cough is productive with shortness of breath and post- tussive emesis. She has had a temperature up to 102.4F. She also has nasal congestion and sore throat. She denies abdominal pain or diarrhea. The patient was admitted here last month for pneumonia. She was treated with Rocephin and Levaquin. She has not taken any antipyretics today. She does not have a PCP. The patient is Romansh-speaking. Patient's family member and CONCEPCION Mclean assist with translation. Review of Systems Review of Systems Constitutional: Reports fever. Eyes: Denies change in visual acuity, redness, or eye pain. [] HENT: Denies ear pain. Reports nasal congestion and sore throat. Respiratory: Reports productive cough and shortness of breath. Cardiovascular: Denies chest pain, palpitations or edema. [] GI: Denies abdominal pain, nausea, bloody stools or diarrhea. Reports posttussive emesis. : Denies dysuria, hematuria or urinary frequency. [] Musculoskeletal: Denies back pain or joint pain. [] Integument: Denies rash or skin lesions. [] Neurologic: Denies headache, focal weakness or sensory changes. [] Endocrine: Denies polyuria or polydipsia. [] Psych: Denies anxiety or depression. [] All systems reviewed and negative unless otherwise stated in the HPI. Allergies Allergies Allergies Coded Allergies Type Severity Reaction Last Updated Verified No Known Drug Allergies 11/19/16 No Physical Exam Physical Exam Constitutional: Well developed, well nourished, no acute distress, non-toxic appearance. [] HENT: Normocephalic, atraumatic, bilateral external ears normal, oropharynx moist, no oral exudates, nose normal. Bilateral TMs without erythema or bulging. There is no posterior pharyngeal erythema or tonsillar edema. Bilateral nasal turbinates are swollen and erythematous. Eyes: PERRLA, EOMI, conjunctiva normal, no discharge. [] Neck: Normal range of motion, no tenderness, supple, no stridor. [] Cardiovascular: Heart rate regular rhythm, no murmur [] Lungs & Thorax: Bilateral breath sounds clear to auscultation without wheezes, rales, or rhonchi. Skin: Warm, dry, no erythema, no rash. [] Neurologic: Alert and oriented X 3, normal motor function, normal sensory function, no focal deficits noted. [] Psychologic: Affect normal, judgement normal, mood normal. [] Current Patient Data Vital Signs Vital Signs Date Time Temp Pulse Resp B/P Pulse Ox O2 Delivery O2 Flow Rate FiO2 12/20/16 16:33 98.2 106 18 96 Room Air 98.2 Lab Values Laboratory Tests Test 12/20/16 17:00 Influenza Type A Antigen Negative (NEGATIVE) Influenza Type B Antigen Negative (NEGATIVE) EKG EKG [] Radiology/Procedures Radiology/Procedures PA and lateral chest x-ray reviewed and interpreted by myself with Dr. Sanford. There is a right lower lobe infiltrate, possibly atelectasis. Course & Med Decision Making Course & Med Decision Making Pertinent Labs and Imaging studies reviewed. (See chart for details) Patient presents with cough and fever for 2 weeks. Upon arrival to the emergency department, she is afebrile without antipyretics. On exam, her lungs are clear and she is not in respiratory distress. Chest x-ray shows a mild right lower lobe infiltrate versus atelectasis. She is discharged home with prescription for doxycycline, prednisone, Tessalon Perles, and albuterol inhaler. She is instructed to follow-up with a PCP closely. Return precautions were discussed. She verbalizes understanding and agrees with plan. Dragon Disclaimer Dragon Disclaimer This electronic medical record was generated, in whole or in part, using a voice recognition dictation system. Departure Departure Impression: Primary Impression: Pneumonia Disposition: 01 HOME, SELF-CARE Condition: STABLE Referrals: NO PCP (PCP) Patient Instructions: Pneumonia, Adult, [id number] Additional Instructions: Please complete all the prescribed antibiotics and steroids, even if you're feeling better. Please use the prescribed inhaler as needed for cough or shortness of breath. Do not use more often than directed. Please follow-up with a primary care provider within the next 2-3 days, sooner if concerns. Return to the emergency department if you have any new or concerning symptoms. Scripts Doxycycline Hyclate 100 Mg Tablet1 Tab PO BID #20 TAB Prov:KATIE MAGALLANES 12/20/16 Albuterol Sulfate (Proair Hfa Inhaler)8.5 Gm [id number].[email or web address] Puff INH Q4HRS PRN SHORTNESS OF BREATH #1 INHALER Prov:KATIE MAGALLANES 12/20/16 Prednisone 20 Mg [id number] Mg PO DAILY 5 Days Prov:KATIE MAGALLANES 12/20/16 Benzonatate 200 Mg Capsule1 Cap PO TID #30 CAP Prov:KATIE MAGALLANES 12/20/16 Problem Qualifiers Primary Impression: Pneumonia Pneumonia type: due to unspecified organism Laterality: right Lung location : lower lobe of lung Qualified Code: J18.1 - Lobar pneumonia, unspecified organism KATIE MAGALLANES Dec 20, 2016 18:29
[2016-12-20] MEDS ORDERED: PRED20TA PO (18:36)
[2016-12-20] MEDS ORDERED: PROAIR HFA8.5 GM INH (18:36)
[2016-12-20] MEDS ORDERED: BENZ200C39 PO (18:36)
[2016-12-20] MEDS ORDERED: DOXY100T PO (18:36)
--- NOTE | 2016-12-21 08:14 | RAD ---
Chest, 2 views, 12/20/2016: History: Cough, fever, shortness of breath Comparison is made to a study from 11/19/2016. The heart size and pulmonary vascularity are normal. There are patchy bibasilar pulmonary right. These have improved on the left since previous study. Mild right basilar infiltrate is new. There is no evidence of pleural fluid. IMPRESSION: Patchy bibasilar pulmonary infiltrates as described above, compatible with residual and/or recurrent pneumonia.
== END 2016-12-20 18:48 | disposition home or self-care (01) ==
LOC: ER 16:23
DX: J18.1 Lobar pneumonia, unspecified organism (principal); F17.200 Nicotine dependence, unspecified, uncomplicated
CPT/HCPCS: 71020; 87804; 99285-25